=== PATIENT | male | born 1960 | race American Indian/Alaskan Native ===

== ENCOUNTER 2022-05-10 12:54 | Emergency (ER) | payer MEDICARE ==
[2022-05-10 20:08] LABS: Basophils # (Auto) 0.1 K/mm3 (0.0-0.1); Basophils % (Auto) 1.5 % (0.0-1.8); Eosinophils # (Auto) 0.1 K/mm3 (0.0-0.4); Eosinophils % (Auto) 1.9 % (0.0-4.3); Hematocrit 41.7 % (35.5-45.6); Hemoglobin 13.9 gm/dl (11.8-15.2); Lymphocytes % (Auto) 34.2 % (13.4-35.0); Mean Corpuscular HGB Conc 33 % (32-34); Mean Corpuscular Volume 102 fl (84-94); Monocytes # (Auto) 0.4 K/mm3 (0.0-0.8); Monocytes % (Auto) 7.1 % (0.0-7.3); Platelet Count 229 K/mm3 (140-440); Red Blood Count 4.09 M/mm3 (3.65-5.03); Red Cell Distribution Width 14.3 % (13.2-15.2)
[2022-05-10 20:46] LABS: Alanine Aminotransferase 17 units/L (7-56); Albumin 3.2 g/dL (3.9-5); Blood Urea Nitrogen 9 mg/dL (9-20); Calcium 8.9 mg/dL (8.4-10.2); Hemolysis Index 37
[2022-05-10 20:53] LABS: BUN/Creatinine Ratio 13
--- NOTE | 2022-05-10 21:22 | XRay Report ---
XR abd series w cxr 1V INDICATION / CLINICAL INFORMATION: abd pain. COMPARISON: None available. FINDINGS: TUBES / LINES: None. CHEST: Visualized chest shows no significant abnormality. BOWEL GAS PATTERN: Bowel gas pattern is nonobstructive. Moderate to large colonic stool burden. FREE AIR / EXTRALUMINAL GAS: None seen. ADDITIONAL FINDINGS: No significant additional findings. IMPRESSION: Moderate to large colonic stool burden, compatible with constipation. No acute radiographic abnormali ty of the abdomen. Signer Name: Dennis Dominique MD Signed: 05/10/2022 9:17 PM Workstation Name: [id number]
--- NOTE | 2022-05-10 21:31 | Emergency Department Report ---
ED General Adult HPI - General Chief complaint: Abdominal Pain Stated complaint: ABD PAIN Time Seen by Provider: 05/10/22 20:22 Source: patient, EMS Mode of arrival: Stretcher Limitations: No Limitations - History of Present Illness Initial comments: 62-year-old F [place] male with a chronic history of abdominal pain associated with weight loss which has been under and vesication by his biological sciences instructor since March 2022. 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 They have undergone biopsies and awaiting the biopsy results and he has plan for colonoscopy next month. Presents emerged department today complaining of a 4 stomach and continued constipation off and on was on the impression he was supposed to come here to get medication. He is accompanied with medical records from his biological sciences instructor was advised to follow-up with his PCP and continue follow-up with gastroenterology and they would timed and dated earlier today. Consistency: constant Improves with: none Worsens with: none Associated Symptoms: denies other symptoms Treatments Prior to Arrival: none - Related Data Previous Rx's Medication Instructions Recorded Last Taken Type Lactulose [Cephulac] 30 gm PO Q6HR #450 ml 05/10/22 Unknown Rx Allergies Allergy/AdvReac Type Severity Reaction Status Date / Time No Known Allergies Allergy Verified 05/10/22 13:04 ED Review of Systems ROS: Stated complaint: ABD PAIN Other details as noted in HPI Comment: All other systems reviewed and negative ED Past Medical Hx - Medications Home Medications: Home Medications Medication Instructions Recorded Confirmed Last Taken Type Lactulose [Cephulac] 30 gm PO Q6HR #450 ml 05/10/22 Unknown Rx ED Physical Exam - General Limitations: No Limitations General appearance: alert, in no apparent distress - Head Head exam: Present: atraumatic, normocephalic - Eye Eye exam: Present: normal appearance, PERRL, EOMI Pupils: Present: normal accommodation - ENT ENT exam: Present: mucous membranes moist - Neck Neck exam: Present: normal inspection - Respiratory Respiratory exam: Present: normal lung sounds bilaterally. Absent: respiratory distress, wheezes, rales, chest wall tenderness, accessory muscle use - Cardiovascular Cardiovascular Exam: Present: regular rate, normal rhythm. Absent: systolic murmur, diastolic murmur, rubs, gallop - GI/Abdominal GI/Abdominal exam: Present: soft, normal bowel sounds - Rectal Rectal exam: Present: deferred - Extremities Exam Extremities exam: Present: normal inspection - Back Exam Back exam: Present: normal inspection. Absent: CVA tenderness (R), CVA tenderness (L) - Neurological Exam Neurological exam: Present: alert, oriented X3, CN II-XII intact - Psychiatric Psychiatric exam: Present: normal affect, normal mood - Skin Skin exam: Present: warm, dry, intact, normal color. Absent: rash ED Course Vital Signs 05/10/22 12:58 Temperature 97.6 F Pulse Rate 80 Respiratory 16 Rate Blood Pressure 123/73 [Right] O2 Sat by Pulse 99 Oximetry ED Medical Decision Making - Lab Data Result diagrams: 05/10/22 19:40 05/10/22 19:40 - Radiology Data Radiology results: report reviewed [address] [address] XRay Report Signed Patient: CECILIA HOUSE MR#: [id number] 9 : 1960 Acct:[id number] Age/Sex: 62 / M ADM Date: 05/10/22 Loc: ED Attending Dr: Ordering Physician: DANYELL TORRES Date of Service: 05/10/22 Procedure(s): XR abd series w cxr 1V Accession Number(s): [id number] cc: DANYELL TORRES Fluoro Time In Minutes: XR abd series w cxr 1V INDICATION / CLINICAL INFORMATION: abd pain. COMPARISON: None available. FINDINGS: TUBES / LINES: None. CHEST: Visualized chest shows no significant abnormality. BOWEL GAS PATTERN: Bowel gas pattern is nonobstructive. Moderate to large colonic stool burden. FREE AIR / EXTRALUMINAL GAS: None seen. ADDITIONAL FINDINGS: No significant additional findings. IMPRESSION: Moderate to large colonic stool burden, compatible with constipation. No acute radiographic abnormality of the abdomen. Signer Name: Vitaliy Conte MD Signed: 05/10/2022 9:17 PM Workstation Name: [id number] Transcribed By: JO Dictated By: VITALIY CONTE MD Electronically Authenticated By: VITALIY CONTE MD Signed Date/Time: 05/10/222116 DD/ 15 TD/TT: - Medical Decision Making This patient presents with abdominal pain of unclear etiology. Their evaluation has not identified a emergent etiology for the abdominal pain. Specifically, given the very benign exam, normal laboratory studies, and lack of significant risk factors, I have a very low suspicion for appendicitis, ischemic bowel, bowel perforation, or any other emergent condition. He has been advised to contact keep to follow-up with his gastro enterologist as well as his PCP as r ecommended by his GI doctor earlier today. Colonoscopy is scheduled for 06/01/2022 as has been advised to maintain that appointment and to follow-up for the repeat EGD. I have discussed with the patient the level of uncertainty with undifferentiated abdominal pain and clearly explained the need to follow-up as noted on the discharge instructions, or return to the Emergency Department immediately if the pain worsens, develops fever, persistent and uncontrollable vomiting, or for any new symptoms or concerns. I discussed with the patient that this presentation today for abdominal pain could represent a significant risk for an acute abdominal process. Although the tests in the ED were essentially normal, there is still a possibility of a process such as appendicitis, diverticulitis, cholecystitis, ulcer, early bowel obstruction, mesenteric ischemia, kidney stone, or even kidney infection which could subsequently cause disability or . The patient understands that they must return within 24 hours for a recheck or see their physician within 24 hours for re-exam due to the possibility of significant surgical or medical process. Critical care attestation.: If time is entered above; I have spent that time in minutes in the direct care of this critically ill patient, excluding procedure time. ED Disposition Clinical Impression: Constipation Disposition: 01 HOME / SELF CARE / HOMELESS Is pt being admited?: No Does the pt Need Aspirin: No Condition: Stable Instructions: Chronic Constipation Additional Instructions: Please be sure to follow-up with your biological sciences instructor and your primary care provider as they have advised and as records state. You have been provided with medication to help with your constipation be sure to consult with your biological sciences instructor before taking this medication. Prescriptions: Lactulose [Cephulac] 30 gm PO Q6HR #450 ml Referrals: [facility] [Provider Group] - 3-5 Days
[2022-05-10 23:42] VITALS: BP 142/79
== END 2022-05-10 23:19 | disposition home or self-care (01) ==
LOC: ED 12:54
DX: K59.00 Constipation, unspecified (principal)
CPT/HCPCS: 36415; 74022; 80053; 83690; 85025; 99284